=== PATIENT | male | born 1980 | race Caucasian/White ===

== ENCOUNTER 2017-10-05 00:54 | Emergency (ER) | payer OTHER ==
[2017-10-05] MEDS ORDERED: SULF-222 PO (03:41)
== END 2017-10-05 01:03 | disposition left against medical advice (07) ==
LOC: EDUNIT# 00:54 → ER 00:57
DX: Z04.8 Encounter for examination and observation for other specified reasons (principal)

== ENCOUNTER 2017-10-05 02:09 | Emergency (ER) | payer OTHER ==
[~2017-10-05] VITALS: Ht 182.9 cm; Wt 93.9 kg
[2017-10-05] MEDS ORDERED: RX-MUPIROCIN (BACTROBAN) 2% OINT 22 GM TUBE TOP STA (03:02)
[2017-10-05] MEDS ORDERED: TRIM/SULFAMETH 160/800 (SEPTRA DS) TAB PO ONE (03:15)
--- NOTE | 2017-10-05 03:38 | ED Integumentary General ---
General Chief Complaint: Skin/Wound Problems Stated Complaint: POSS SPIDER BITE Nursing Triage Note: PT TO ED 7 W/ C/O POSS SPIDER BITE TO RT UPPER THIGH ONSET X1 WK ONSET AFTER RIDING BIKES. Source: patient Exam Limitations: no limitations History of Present Illness Date Seen by Provider: Oct 05, 2017 Time Seen by Provider: 02:57 Initial Comments Here with report of spider bite to the right anterior thigh to mid thigh. States this is been going on for a couple days. Noted onset after putting on a pair of pants that have been in the closet for quite some time. Notes a black central core. He has been using antibiotic ointment over the wound and have helped. Notes central core surrounded by redness surrounded by less severe redness and then to normal scan. Denies previous history of similar. Timing/Duration: getting worse, other (few days) Severity: moderate Location: extremities Possible Cause: insect bite Associated Symptoms: change in skin texture, edema, No fever, No rash Allergies and Home Medications Allergies Coded Allergies: No Allergy Information Available (Unverified , 02/12/16) Patient Home Medication List Home Medication List Reviewed: Yes Constitutional: see HPI, No chills, No fever Respiratory: no symptoms reported Cardiovascular: no symptoms reported Gastrointestinal: no symptoms reported, No nausea, No vomiting Skin: see HPI, change in color, lesions Past Pbpwuhw-Mtwxpl-Uzjnqb Hx Patient Social History Alcohol Use: Occasionally Uses Recreational Drug Use: No Smoking Status: Current Everyday Smoker Type Used: Cigarettes Recent Foreign Travel: No Contact w/Someone Who Travel: No Recent Infectious Disease Expo: No Recent Hopitalizations: No Physical Abuse: No Sexual Abuse: No Mistreated: No Fear: No Surgeries History of Surgeries: No Respiratory History of Respiratory Disorde: No Cardiovascular History of Cardiac Disorders: No Neurological History of Neurological Disord: No Genitourinary History of Genitourinary Disor: No Gastrointestinal History of Gastrointestinal Di: No Musculoskeletal History of Musculoskeletal Dis: No Endocrine History of Endocrine Disorders: No HEENT History of HEENT Disorders: No Cancer History of Cancer: No Psychosocial History of Psychiatric Problem: No Suicide Risk Score: 0 Integumentary History of Skin or Integumenta: No Blood Transfusions History of Blood Disorders: No Reviewed Nursing Assessment Reviewed/Agree w Nursing PMH: Yes Family Medical History Significant Family History: No Pertinent Family Hx Physical Exam Vital Signs Vital Signs - First Documented 10/05/17 02:30 Temp 97.1 Pulse 105 Resp 20 B/P (MAP) 115/92 (100) Pulse Ox 99 O2 Delivery Room Air Capillary Refill : Less Than 3 Seconds General Appearance: WD/WN, no apparent distress Cardiovascular: regular rate, rhythm, no murmur Respiratory: lungs clear, normal breath sounds Skin: warm/dry Skin Problem Location: lower extremities (right anterior thigh) Skin Problem Character: erythema, lesion, warm, other (small 3 mm central black core surrounded by 3 cm area of erythema and induration surrounding by 8 cm area of erythema consistent with brown recluse spider bite) Progress/Results/Core Measures Results/Orders My Orders Orders - LOKESH SEGAL MD Rx-Mupirocin 2% Oint (Rx-Bactroban) (10/05/17 03:02) Sulfamethoxazole/Trimet Ds Tab (Bactrim (10/05/17 03:15) Medications Given in ED Current Medications Medications Dose Ordered Sig/Devika Route Start Time Stop Time Status Last Admin Dose Admin Trimethoprim/ Sulfamethoxazole 1 ea ONCE ONCE PO 10/05/17 03:15 10/05/17 03:16 DC 10/05/17 03:25 1 EA Vital Signs/I&O Vital Sign - Last 12Hours 10/05/17 02:30 Temp 97.1 Pulse 105 Resp 20 B/P (MAP) 115/92 (100) Pulse Ox 99 O2 Delivery Room Air Blood Pressure Mean: 100 Progress Note : Progress Note Seen and evaluated. Bactrim DS one tab by mouth. Mupirocin ointment to wound. Discharged home with return precautions. Patient verbalize understanding instructions and agreement with plan. Departure Impression Impression: Primary Impression: Brown recluse spider bite Qualified Codes: T63.334A - Toxic effect of venom of brown recluse spider, undetermined, initial encounter Disposition: 01 HOME, SELF-CARE Condition: Improved Departure-Patient Inst. Decision time for Depature: 03:38 Referrals: VAISHALI PINEDA DO (PCP/Family) Primary Care Physician Patient Instructions: Spider Bites, Cellulitis (Skin Infection), Adult (DC) Add. Discharge Instructions: All discharge instructions reviewed with patient and/or family. Voiced understanding. Take medications as directed. Use antibiotic ointment over wound twice daily and cover with dressing. Keep wound clean otherwise. Follow-up with your Dr. in a few days for recheck. You may take ibuprofen 800 mg every 8 hours as needed for pain. You may take Tylenol/acetaminophen 1000 mg every 8 hours as needed for pain. Return for worse pain, fever, vomiting, weakness, breathing problems or other concerns as needed. Scripts Sulfamethoxazole/Trimethoprim (Sulfamethoxazole-Tmp Ds Tablet) 1 Each Tablet 1 EACH PO BID, #14 TAB 0 Refills Prov: LOKESH SEGAL MD 10/05/17 LOKESH SEGAL MD Oct 05, 2017 03:38
[2017-10-05] MEDS ORDERED: SULF-222 PO (03:41)
[2017-10-05 03:44] VITALS: BP 0/0
== END 2017-10-05 03:44 | disposition home or self-care (01) ==
LOC: EDUNIT# 02:09 → ER 02:11
DX: T63.331A Toxic effect of venom of brown recluse spider, accidental (unintentional), initial encounter (principal); F17.210 Nicotine dependence, cigarettes, uncomplicated
CPT/HCPCS: 99283

== ENCOUNTER 2017-10-07 11:04 | Day surgery (SDC) | payer OTHER ==
--- NOTE | 2017-10-06 19:03 | Progress Note-Pre Operative ---
Pre-Operative Progress Note H&P Reviewed The H&P was reviewed, patient examined and no changes noted. Date Seen by Provider: Oct 06, 2017 Time Seen by Provider: 16:00 Date H&P Reviewed: Oct 06, 2017 Time H&P Reviewed: 19:03 Pre-Operative Diagnosis: Abscess of right thigh DIANNE CORNELL MD Oct 06, 2017 7:03 pm
[~2017-10-07] VITALS: Ht 182.9 cm; Wt 93.9 kg
[~2017-10-07 11:04] MED LIST: SULF-222 PO
[2017-10-07] MEDS ORDERED: ceFAZolin 2 GM IV Premixed 50 ML ONE (11:40)
[2017-10-07] MEDS ORDERED: LACTATED RINGERS 1,000 ML IV SCH (12:15)
--- NOTE | 2017-10-07 12:53 | Progress Note-Pre Operative ---
Pre-Operative Progress Note H&P Reviewed The H&P was reviewed, patient examined and no changes noted. Date Seen by Provider: Oct 06, 2017 Time Seen by Provider: 16:30 Date H&P Reviewed: Oct 06, 2017 Time H&P Reviewed: 12:53 Pre-Operative Diagnosis: Abscess of right thigh DIANNE CORNELL MD Oct 07, 2017 12:53 pm
[2017-10-07] MEDS ORDERED: BUP/EPI 0.5% 1:200,000 (SENSORCAINE) 30 ML VIAL ONE (12:54)
[2017-10-07] MEDS ORDERED: proPOfol 200 MG/20 ML (DIPRIVAN) VIAL IV ONE (13:02)
[2017-10-07] MEDS ORDERED: LIDOCAINE PF 2% 5 ML (XYLOCAINE) VIAL ONE (13:02)
[2017-10-07] MEDS ORDERED: MIDAZOLAM 2 MG/2 ML (VERSED) VIAL ONE (13:02)
[2017-10-07] MEDS ORDERED: fentaNYL INJECTION 100 MCG/2 ML AMP ONE (13:02)
[2017-10-07] MEDS ORDERED: SEVOFLURANE (ULTANE) 15 ML INHAL SOLN ONE (13:02)
[2017-10-07] MEDS ORDERED: ceFAZolin 2 GM/50 ML PRE-MIX IVPB IV ONE (13:30)
[2017-10-07] MEDS ORDERED: ONDANSETRON 4 MG/2 ML (SDV) Z0FRAN ONE (13:32)
[2017-10-07] MEDS ORDERED: DEXAMETHASONE 10 MG/ML (DECADRON) 1 ML VIAL ONE (13:32)
[2017-10-07] MEDS ORDERED: ACHD5005 PO (13:33)
--- NOTE | 2017-10-07 13:33 | Operative Report ---
Operative Report Date of Procedure/Surgery Oct 07, 2017 Surgeon (s) DIANNE CORNELL MD Assistant Scientist (s): N/A Post-Operative Diagnosis Same Procedure Performed Incision and drainage Description of Procedure Anesthesia Type: General Estimated blood loss (mL): Minimal Specimen(s) collected/removed Pus for culture Description of the Procedure Indication for the procedure: This gentleman presented with an abscess over the right anterior thigh, requiring formal incision and drainage under general anesthetic. Informed consent was obtained after reviewing the operative details and complications of postoperative bleeding and recurrence of the abscess. Description of the procedure: He was placed supine on the operative table and general anesthesia induced. Right thigh was prepared and draped in the usual sterile manner. An elliptical incision about 3 cm long was made in a longitudinal fashion and the abscess cavity evacuated. It was irrigated with saline and a [place] drain left in the abscess cavity, to promote postoperative drainage. It was secured using a 2-0 silk suture and a nonadherent dressing applied. He tolerated the procedure well, was extubated in the operating room and taken to the recovery room in a stable condition. Findings of the Procedure See op report Allergies and Home Medications Allergies Coded Allergies: No Allergy Information Available (Unverified , 02/12/16) Home Medications Sulfamethoxazole/Trimethoprim 1 Each Tablet, 1 EACH PO BID Prescribed by: LOKESH SEGAL on 10/05/17 0341 Patient Home Medication List Home Medication List Reviewed: Yes DIANNE CORNELL MD Oct 07, 2017 1:33 pm
--- NOTE | 2017-10-07 13:34 | Discharge Inst-Simple/Standard ---
Discharge Inst-Standard Discharge Medications New, Converted or Re-Newed RX: RX on Chart Patient Instructions/Follow Up Plan of Care/Instructions/FU: Change dressing with an ABD pad once a day. Follow-up with my nurse on Friday morning for removal of the drain Activity as Tolerated: Yes Discharge Diet: No Restrictions DIANNE CORNELL MD Oct 07, 2017 1:34 pm
[2017-10-07] MEDS ORDERED: HYDROmorphone (DILAUDID) 2 MG/ML VIAL IVP PRN (13:45)
[2017-10-07] MEDS ORDERED: morphine INJ 10 MG/ML 1ML (SYR OR VIAL) IVP PRN (13:45)
[2017-10-07] MEDS ORDERED: MEPERIDINE (DEMEROL) INJ 50 MG/ML IVP PRN (13:45)
[2017-10-07] MEDS ORDERED: ONDANSETRON 4 MG/2 ML (SDV) Z0FRAN IVP PRN (13:45)
[2017-10-07 14:25] VITALS: BP 122/81
[2017-10-07] MEDS ORDERED: HYDROcodone/APAP 5 MG/325 MG (LORTAB) TAB PO PRN (14:30)
[2017-10-07 14:51] VITALS: BP 116/77
[2017-10-07 14:52] VITALS: BP 116/77
== END 2017-10-07 15:35 | disposition home or self-care (01) ==
LOC: SDC 11:04
PROVIDERS: ATTEND Surgery
DX: L02.415 Cutaneous abscess of right lower limb (principal); F17.210 Nicotine dependence, cigarettes, uncomplicated; Z79.82 Long term (current) use of aspirin
CPT/HCPCS: 87070; 87075; 87077; 87081; 87186; 87205

== ENCOUNTER 2018-02-02 23:26 | Emergency (ER) | payer OTHER ==
[~2018-02-02 23:26] MED LIST changes: +ACHD5005 PO
== END 2018-02-02 23:35 | disposition left against medical advice (07) ==
LOC: EDUNIT# 23:26 → ER 23:28
DX: R21 Rash and other nonspecific skin eruption (principal)

== ENCOUNTER 2018-02-03 16:12 | Emergency (ER) | payer OTHER ==
[~2018-02-03] VITALS: Ht 182.9 cm; Wt 81.6 kg
[2018-02-03 18:53] VITALS: BP 155/97
== END 2018-02-03 18:51 | disposition left against medical advice (07) ==
LOC: EDUNIT# 16:12 → ER 16:13
DX: M25.512 Pain in left shoulder (principal); V18.4XXA Pedal cycle driver injured in noncollision transport accident in traffic accident, initial encounter; Y92.410 Unspecified street and highway as the place of occurrence of the external cause
CPT/HCPCS: 99282

== ENCOUNTER 2018-05-30 16:08 | Emergency (ER) | payer MEDICAID, OTHER ==
[~2018-05-30] VITALS: Ht 182.9 cm; Wt 95.3 kg
[2018-05-30] MEDS ORDERED: DOXY25TA56 PO (17:15)
[2018-05-30] MEDS ORDERED: MUPI22OI2 TP (17:15)
[2018-05-30] MEDS ORDERED: SULF1TAB35 PO (17:15)
--- NOTE | 2018-05-30 17:15 | ED Integumentary General ---
General Chief Complaint: Skin/Wound Problems Stated Complaint: LUMP ON L SIDE OF NECK Nursing Triage Note: PT REPORTS SWOLLEN AREA ON L SIDE OF NECK X 4 DAYS Source: patient Exam Limitations: no limitations History of Present Illness Date Seen by Provider: May 30, 2018 Time Seen by Provider: 17:10 Initial Comments To ER with a pustule to the left side of the neck present for 4 days. No fevers or chills. History of several MRSA abscesses. Timing/Duration: getting worse Severity: moderate Allergies and Home Medications Allergies Coded Allergies: No Allergy Information Available (Unverified , 02/12/16) Home Medications No Active Prescriptions or Reported Meds Patient Home Medication List Home Medication List Reviewed: Yes Review of Systems Review of Systems Constitutional: see HPI; No chills, No fever EENTM: see HPI Respiratory: no symptoms reported Genitourinary: no symptoms reported Musculoskeletal: no symptoms reported Skin: no symptoms reported Psychiatric/Neurological: No Symptoms Reported Endocrine: No Symptoms Reported Past Hgqhyan-Lzzffm-Leapgp Hx Patient Social History Alcohol Use: Occasionally Uses Recreational Drug Use: No Smoking Status: Current Everyday Smoker Type Used: Cigarettes Recent Foreign Travel: No Contact w/Someone Who Travel: No Recent Infectious Disease Expo: No Recent Hopitalizations: No Physical Abuse: No Sexual Abuse: No Mistreated: No Fear: No Past Medical History Surgeries: Yes (R LEG ABCESS ) Orthopedic Respiratory: No Cardiac: No Neurological: No Reproductive Disorders: No Genitourinary: No Gastrointestinal: No Musculoskeletal: No Endocrine: No HEENT: No Cancer: No Psychosocial: No Integumentary: No Blood Disorders: No Family Medical History No Pertinent Family Hx Physical Exam Vital Signs Vital Signs - First Documented 05/30/18 16:18 Temp 98.5 Pulse 83 Resp 16 B/P (MAP) 131/97 (108) Pulse Ox 98 Capillary Refill : Less Than 3 Seconds General Appearance: WD/WN, no apparent distress HEENT: PERRL/EOMI, normal ENT inspection, other (there is a 0.5 cm pustule to the left lateral neck. This is fluctuant. No surrounding cellulitis.) Cardiovascular: regular rate, rhythm, no murmur Respiratory: no respiratory distress, no accessory muscle use Neurologic/Psychiatric: alert, normal mood/affect, oriented x 3 Skin: normal color, warm/dry Skin Problem Character: abscess, other (pustule) Procedures/Interventions I&D : Blade Size: 11 Progress Anesthetized with 0.1 mL of lidocaine 1% without epinephrine. Opened with an 11 blade scalpel and chunky sebaceous material was expressed. Culture collected and sent to lab. Covered with a Band-Aid. Progress/Results/Core Measures Results/Orders My Orders Orders - ARINA MAGAÑA APRN Wound Culture (05/30/18 17:08) Vital Signs/I&O 05/30/18 16:18 Temp 98.5 Pulse 83 Resp 16 B/P (MAP) 131/97 (108) Pulse Ox 98 Blood Pressure Mean: 108 Departure Communication (Admissions) He would also like a sleep aid prescription. Impression Primary Impression: Sebaceous cyst Disposition: HOME, SELF-CARE Condition: Stable Departure-Patient Inst. Decision time for Depature: 17:12 Referrals: VAISHALI PINEDA DO (PCP/Family) Primary Care Physician Patient Instructions: SEBACEOUS CYST-I&D Add. Discharge Instructions: 1. Shower with the shampoo daily for the next 5 days. Apply the and buttock ointment inside her nose on a Q-tip twice daily for the next 5 days. Antibiotics orally as directed and sleep aid medication as directed. All discharge instructions reviewed with patient and/or family. Voiced understanding. Scripts Mupirocin (Mupirocin) 22 Gm Oint...g. 1 GM TP BID, #1 TUBE Prov: ARINA MAGAÑA APRN 05/30/18 Sulfamethoxazole/Trimethoprim (Bactrim Ds Tablet) 1 Each Tablet 1 EACH PO BID, #10 TAB Prov: ARINA MAGAAÑ APRN 05/30/18 Doxylamine Succinate (Unisom) 25 Mg Tablet 25 MG PO HS, #30 TAB Prov: ARINA MAGAÑA APRN 05/30/18 ARINA MAGAÑA APRN May 30, 2018 17:15
[2018-05-30 17:17] VITALS: BP 136/90
== END 2018-05-30 17:17 | disposition home or self-care (01) ==
LOC: EDUNIT# 16:08 → ER 16:09
DX: L72.3 Sebaceous cyst (principal); F17.210 Nicotine dependence, cigarettes, uncomplicated; Z86.14 Personal history of Methicillin resistant Staphylococcus aureus infection
CPT/HCPCS: 87070; 87205; 99282

== ENCOUNTER 2018-07-27 03:05 | Emergency (ER) | payer MEDICAID ==
[~2018-07-27] VITALS: Ht 182.9 cm; Wt 83.9 kg
[~2018-07-27 03:05] MED LIST changes: +DOXY25TA56 PO; +MUPI22OI2 TP; +SULF1TAB35 PO
[2018-07-27] MEDS ORDERED: TRIM/SULFAMETH 160/800 (SEPTRA DS) TAB PO ONE (05:00)
[2018-07-27] MEDS ORDERED: SULF1TAB35 PO (05:47)
--- NOTE | 2018-07-27 05:48 | ED General ---
General Chief Complaint: Skin/Wound Problems Stated Complaint: BIG SPLINTER IN RT WRIST Nursing Triage Note: Pt arrived by private vehicle for chief complaint of large splinter in right wrist. Pt fell into door around 0300 this morning and got splinter to right wrist. Nursing Sepsis Screen: No Definite Risk Source of Information: Patient Exam Limitations: No Limitations History of Present Illness Date Seen by Provider: Jul 27, 2018 Time Seen by Provider: 04:13 Initial Comments This 37-year-old gentleman presents to the emergency room with a foreign body in the right wrist. He arrives by private vehicle. He got up in the night and was walking in his home when he tripped and fell striking his wrist on an old door frame. A splinter of wood lodged in the ventral aspect of the right wrist. There is a length of about 2 cm of a wood fragment embedded into the skin. Patient was unable to remove it at home and decided to seek help. He has had a tetanus immunization within the last year. He reports no other injuries. He denies any pain with range of motion in the wrist, neurologic changes to the hand, or other complications. He denies any alcohol use tonight. Allergies and Home Medications Allergies Coded Allergies: No Allergy Information Available (Unverified , 02/12/16) Home Medications Doxylamine Succinate 25 Mg Tablet, 25 MG PO HS Prescribed by: ARINA MAGAÑA on 05/30/181714 Mupirocin 22 Gm Oint...g., 1 GM TP BID Prescribed by: ARINA MAGAÑA on 05/30/18 171 Sulfamethoxazole/Trimethoprim 1 Each Tablet, 1 EACH PO BID Prescribed by: ARINA MAGAÑA on 05/30/18 171 Sulfamethoxazole/Trimethoprim 1 Each Tablet, 1 EACH PO BID Prescribed by: LAVELL MICHAEL on 07/27/18 0547 Patient Home Medication List Home Medication List Reviewed: Yes Review of Systems Review of Systems Constitutional: no symptoms reported EENTM: no symptoms reported Respiratory: no symptoms reported Cardiovascular: no symptoms reported Gastrointestinal: no symptoms reported Genitourinary: no symptoms reported Musculoskeletal: no symptoms reported Skin: see HPI Psychiatric/Neurological: No Symptoms Reported Hematologic/Lymphatic: No Symptoms Reported Immunological/Allergic: no symptoms reported Past Djowksr-Vrhyyv-Iaqfpr Hx Past Med/Social Hx: Reviewed Nursing Past Med/Soc Hx Patient Social History Alcohol Use: Occasionally Uses Recreational Drug Use: No Smoking Status: Current Everyday Smoker Type Used: Cigarettes 2nd Hand Smoke Exposure: No Recent Foreign Travel: No Contact w/Someone Who Travel: No Recent Infectious Disease Expo: No Recent Hopitalizations: No Physical Abuse: No Sexual Abuse: No Mistreated: No Fear: No Past Medical History Surgeries: Yes (R LEG ABCESS ) Orthopedic Respiratory: No Cardiac: No Neurological: No Reproductive Disorders: No Genitourinary: No Gastrointestinal: No Musculoskeletal: No Endocrine: No HEENT: No Cancer: No Psychosocial: No Integumentary: No Blood Disorders: No Family Medical History No Pertinent Family Hx Physical Exam Vital Signs Vital Signs - First Documented 07/27/18 04:30 Temp 98.3 Pulse 87 Resp 18 B/P (MAP) 130/93 (105) Pulse Ox 98 O2 Delivery Room Air Capillary Refill : Less Than 3 Seconds Height, Weight, BMI Height: 6'0" Weight: 185lbs. 0oz. 83.147073tw; 28.1 BMI Method:Stated General Appearance: No Apparent Distress, WD/WN HEENT: PERRL/EOMI, Normal ENT Inspection Neck: Normal Inspection Respiratory: Lungs Clear, Normal Breath Sounds, No Accessory Muscle Use Cardiovascular: Regular Rate, Rhythm, No Edema, No Murmur Extremity: Other (there is a wood fragment approximately 3-4 mm in width and about 2 cm in length impaled in the ventral aspect of the right wrist. There is no active bleeding) Neurologic/Psychiatric: Alert, Oriented x3, No Motor/Sensory Deficits, Normal Mood/Affect, manufacturing sr engineer II-XII Norm as Tested Skin: Normal Color, Warm/Dry, Other (see above) Procedures/Interventions Progress Skin around the injury was cleaned with alcohol. Approximately 3 mL of one percent lidocaine was injected around the area for local anesthetic. The area was prepped with Betadine. Hemostats were used to grasp the wood fragment. It was firmly embedded and could not be removed. An incision was made over the wood fragment less than 1 cm in length. With this extension of the wound, I was able to lift the wood fragment out of his wrist. Using a filter needle and a 60 mL syringe, the wound was irrigated with normal saline. There was significant bleeding from the wound after extraction of the fragment. A pressure dressing was applied and allowed to remain for 20 minutes. Bleeding had resolved when the pressure dressing was removed. Wound was dressed with antibiotic ointment, left open, and covered with a large Band-Aid. Because of proximity to the wrist joint and the nature of the wound, patient was treated with Bactrim prophylactically. Progress/Results/Core Measures Suspected Sepsis Recent Fever Within 48 Hours: No Infection Criteria Present: None New/Unexplained Altered Menta: No Sepsis Screen: No Definite Risk SIRS Temperature:98.3 Pulse: 87 Respiratory Rate: 18 Blood Pressure 130 /93 Mean: 105 Results/Orders My Orders Orders - LAVELL CHAN MD Sulfamethoxazole/Trimet Ds Tab (Bactrim (07/27/18 05:00) Lidocaine 1% Inj 20 Ml (Xylocaine 1% Inj (07/27/18 09:00) Medications Given in ED Current Medications Medications Dose Ordered Sig/Devika Route Start Time Stop Time Status Last Admin Dose Admin Lidocaine HCl 5 ml ONCE ONCE INJ 07/27/18 09:00 07/27/18 09:00 DC 07/27/18 05:10 5 ML Vital Signs/I&O Capillary Refill : Less Than 3 Seconds Blood Pressure Mean: 105 Departure Impression Primary Impression: Foreign body of wrist Qualified Codes: S60.851A - Superficial foreign body of right wrist, initial encounter Disposition: HOME, SELF-CARE Condition: Improved Departure-Patient Inst. Decision time for Depature: 05:45 Referrals: VAISHALI PINEDA DO (PCP/Family) Primary Care Physician Patient Instructions: NO INSTRUCTIONS GIVEN Add. Discharge Instructions: Keep your wound clean, dry, and covered for the next couple of days and until it seals over. Monitor for signs of infection such as increasing pain, increasing redness, increasing swelling, puslike drainage, or fevers. Return to care promptly if you notice any of these symptoms. For pain you may take ibuprofen up to 600 mg every 6 hours and/or Tylenol ( acetaminophen) up to 1000 mg every 6 hours as needed. All discharge instructions reviewed with patient and/or family. Voiced understanding. Scripts Sulfamethoxazole/Trimethoprim (Bactrim Ds Tablet) 1 Each Tablet 1 EACH PO BID, #10 TAB Prov: LAVELL CHAN MD 07/27/18 LAVELL CHAN MD Jul 27, 2018 05:48
[2018-07-27 06:00] VITALS: BP 130/93
[2018-07-27] MEDS ORDERED: LIDOCAINE 1% INJ 20 ML 20 ML VIAL INJ ONE (09:00)
== END 2018-07-27 06:00 | disposition home or self-care (01) ==
LOC: EDUNIT# 03:05 → ER 03:07
DX: S60.851A Superficial foreign body of right wrist, initial encounter (principal); F17.210 Nicotine dependence, cigarettes, uncomplicated; W01.190A Fall on same level from slipping, tripping and stumbling with subsequent striking against furniture, initial encounter; Y92.009 Unspecified place in unspecified non-institutional (private) residence as the place of occurrence of the external cause
CPT/HCPCS: 99283

== ENCOUNTER 2018-11-30 14:02 | Emergency (ER) | payer MEDICAID ==
[~2018-11-30] VITALS: Ht 182.9 cm; Wt 83.9 kg
--- OUTSIDE RECORDS SUMMARY | 2018-11-30 14:26 | XMS REPORT ---
Author Author Migration, Doctor Organization [facility] Address Unknown Phone Unavailable Care Team Providers Care Calciner Operator Helper Name Role Phone Migration, Doctor Unavailable Unavailable PROBLEMS No Known Problems ALLERGIES No Information ENCOUNTERS Encounter Location Date Diagnosis [facility] [id number] [place] [phone] Sep, Hordeolum externum of left upper eyelid H00.014 [address] [address] [address] Apr, Injury of right hand, initial encounter S69.91XA [facility] [address] [address] Feb, [facility] [id number] [place] [phone] Feb, [facility] W[facility] [id number] [place] [phone] Feb, Abrasion of right thumb, initial encounter S60.311A and Encounter for immunization Z23 [place] [id number] [place] [phone] Jan, Dental caries K02.9 [place] [address] [address] Dec, Dental examination Z01.20 [place] [id number] [place] [phone] Oct, [address] [place] [address] [phone] Oct, [place] [address] [address] Jul, [id number] [place] [address] Jul, [facility] [address] [facility] [id number] [place] [address] Apr, IMMUNIZATIONS No Known Immunizations SOCIAL HISTORY Never Assessed [place] [place] VITAL SIGNS MEDICATIONS No Known Medications RESULTS No Results PROCEDURES No Known procedures INSTRUCTIONS MEDICATIONS ADMINISTERED No Known Medications MEDICAL (GENERAL) HISTORY Type Description Date Surgical History surgery on rt leg 10/2017 Hospitalization History No know Hospitalization history
--- OUTSIDE RECORDS SUMMARY | 2018-11-30 14:26 | XMS REPORT ---
Author Author Migration, Doctor Organization [facility] Address Unknown Phone Unavailable Care Team Providers Care Forepart Laster Name Role Phone Migration, Doctor Unavailable Unavailable PROBLEMS No Known Problems ALLERGIES No Information ENCOUNTERS Encounter Location Date Diagnosis [facility] [id number] [place] [phone] Sep, Hordeolum externum of left upper eyelid H00.014 [place] [address] [address] Apr, Injury of right hand, initial encounter S69.91XA [facility] [address] [address] Feb, [facility] [id number] [place] [phone] Feb, [facility] [id number] [place] [phone] Feb, Abrasion of right thumb, initial encounter S60.311A and Encounter for immunization Z23 [place] [id number] [place] [phone] Jan, Dental caries K02.9 [place] [address] [address] Dec, Dental examination Z01.20 [place] [id number] [place] [phone] Oct, [place] [address] [phone] Oct, [place] [address] [address] Jul, [place] [address] [id number] [place] [address] Jul, [facility] [address] [facility] [id number] [place] [address] Apr, IMMUNIZATIONS No Known Immunizations SOCIAL HISTORY Never Assessed [place] [place] VITAL SIGNS MEDICATIONS Medication Instructions Dosage Frequency Start Date End Date Duration Status Amoxicillin 500 mg 2 capsule by Oral route 2 times per day for 10 day(s) Jul, Active RESULTS No Results PROCEDURES No Known procedures INSTRUCTIONS MEDICATIONS ADMINISTERED No Known Medications MEDICAL (GENERAL) HISTORY Type Description Date Surgical History surgery on rt leg 10/2017 Hospitalization History No know Hospitalization history
[2018-11-30] MEDS ORDERED: AMOX-358 PO (14:28)
[2018-11-30] MEDS ORDERED: ACHD5005 PO (14:29)
--- NOTE | 2018-11-30 14:29 | ED EENT ---
History of Present Illness General Chief Complaint: Dental Problems/Pain Stated Complaint: TOOTH ACHE Nursing Triage Note: PT STATES HAVING A TOOTH ABCESS SINCE FRIDAY. PT STATES INCREASED SWELLING ON RIGHT SIDE. PT DENIES FEVERS. PT DENIES ANY RECENT ANTIBIOTIC USE. Source: patient Exam Limitations: no limitations History of Present Illness Date Seen by Provider: November 30, 2018 Time Seen by Provider: 14:27 Initial Comments 38 year old male who present to the emergency room with complaints of dental abscess on right lower side for the past 3 days. Denies fevers. Location: dental Associated Symptoms: tooth pain Allergies and Home Medications Allergies Coded Allergies: No Allergy Information Available (Unverified , 02/12/16) Home Medications Amoxicillin/Potassium Clav 1 Each Tablet, 1 EACH PO BID Prescribed by: ESAU REARDON on 11/30/18 1428 Doxylamine Succinate 25 Mg Tablet, 25 MG PO HS Prescribed by: ARINA MAGAÑA on 05/30/18 171 Hydrocodone Bit/Acetaminophen 1 Tab Tab, 1 EACH PO Q4-6HR PRN for PAIN-MODERATE Prescribed by: ESAU REARDON on 11/30/18 1429 Mupirocin 22 Gm Oint...g., 1 GM TP BID Prescribed by: ARINA MAGAÑA on 05/30/18 171 Sulfamethoxazole/Trimethoprim 1 Each Tablet, 1 EACH PO BID Prescribed by: ARINA MAGAÑA on 05/30/18 171 Sulfamethoxazole/Trimethoprim 1 Each Tablet, 1 EACH PO BID Prescribed by: LAVELL MICHAEL on 07/27/18 0547 Patient Home Medication List Home Medication List Reviewed: Yes Review of Systems Review of Systems Constitutional: see HPI; No chills, No fever Mouth: see HPI, pain, swelling All Other Systems Reviewed Negative Unless Noted: Yes Past Dzpikey-Icsaki-Shzbqm Hx Past Med/Social Hx: Reviewed Nursing Past Med/Soc Hx Patient Social History Alcohol Use: Denies Use Recreational Drug Use: No Type Used: Cigarettes 2nd Hand Smoke Exposure: No Recent Foreign Travel: No Contact w/Someone Who Travel: No Recent Infectious Disease Expo: No Recent Hopitalizations: No Physical Abuse: No Sexual Abuse: No Mistreated: No Fear: No Seasonal Allergies Seasonal Allergies: No Past Medical History Surgeries: Yes (R LEG ABCESS ) Orthopedic Respiratory: No Cardiac: No Neurological: No Reproductive Disorders: No Genitourinary: No Gastrointestinal: No Musculoskeletal: No Endocrine: No HEENT: No Cancer: No Psychosocial: No Integumentary: No Blood Disorders: No Family Medical History Reviewed Nursing Family Hx No Pertinent Family Hx Physical Exam Vital Signs Vital Signs - First Documented 11/30/18 11/30/18 14:08 14:38 Temp 98.3 Pulse 83 Resp 18 B/P (MAP) 116/80 (92) Pulse Ox 99 O2 Delivery Room Air Height, Weight, BMI Height: 6'0" Weight: 185lbs. 0oz. 83.753035mw; 28.1 BMI Method:Stated General Appearance: WD/WN, no apparent distress Mouth/Throat: normal mouth inspection, pharynx normal, dental tenderness (see images ) Cardiovascular: normal peripheral pulses, regular rate, rhythm, no edema, no gallop, no JVD, no murmur Respiratory: chest non-tender, lungs clear, normal breath sounds, no respiratory distress, no accessory muscle use Neurologic/Psychiatric: alert, normal mood/affect, oriented x 3 Skin: normal color, warm/dry Progress/Results/Core Measures Results/Orders My Orders Orders - ESAU REARDON Amoxicillin/Clavulanate Tablet (Augmenti (11/30/18 17:00) Vital Signs/I&O Blood Pressure Mean: 92 Departure Impression Primary Impression: Abscessed tooth Disposition: 01 HOME, SELF-CARE Condition: Stable/Unchanged Departure-Patient Inst. Decision time for Depature: 14:27 Referrals: VAISHALI PINEDA DO (PCP/Family) Primary Care Physician Patient Instructions: Tooth Abscess (DC) Add. Discharge Instructions: Take medications as directed. You may use ibuprofen and Tylenol as directed by the bottle for pain relief. Follow-up with your dentist within 1 week for recheck. Return back to the emergency room for worsening symptoms or concerns as needed. All discharge instructions reviewed with patient and/or family. Voiced understanding. Scripts Hydrocodone Bit/Acetaminophen (Hydrocodone/Acetaminophen 5/325mg Tablet) 1 Tab Tab 1 EACH PO Q4-6HR PRN for PAIN-MODERATE MDD 10 for 3 Days, #10 TAB Prov: ROJELIO REARDONIS 11/30/18 Amoxicillin/Potassium Clav (Augmentin 875-125 Tablet) 1 Each Tablet 1 EACH PO BID for 10 Days, #20 TAB 0 Refills Prov: BERNOT,ESAU 5/27/19 Images Mouth/Nose 1 - Swelling, Tenderness ESAU REARDON November 30, 2018 14:29
[2018-11-30 14:38] VITALS: BP 116/80
[2018-11-30] MEDS ORDERED: AUGMENTIN 875 MG TAB (AMOXICILLIN/CLAVULANATE) PO SCH (17:00)
== END 2018-11-30 14:41 | disposition home or self-care (01) ==
LOC: EDUNIT# 14:02 → ER 14:04
DX: K04.7 Periapical abscess without sinus (principal)
CPT/HCPCS: 99283